=== PATIENT | male | born 2000 | race Two or more races ===

== ENCOUNTER 2024-09-13 12:20 | Emergency (ER) | payer OTHER ==
[~2024-09-13] VITALS: Ht 180.3 cm; Wt 113.4 kg
[2024-09-13 13:03] VITALS: BP 128/84; O2SAT 99
[2024-09-13] MEDS ORDERED: DIPHENHYDRAMINE HCL 50 MG/ML VIAL 1ML IV ONE (14:00)
[2024-09-13] MEDS ORDERED: 0.9 % SODIUM CHLORIDE 1,000 ML IV SCH (14:00)
[2024-09-13 15:04] LABS: HEMATOCRIT 46.9 % (39.0-48.0); HEMOGLOBIN 16.4 g/dL (13-16.00); MEAN CELL VOLUME 82.8 fL (80.0-100.00); RED BLOOD COUNT 5.67 M/uL (4.00-6.00); RED CELL DISTRIBUTION WIDTH 13.6 % (11.5-14.5)
[2024-09-13 16:31] LABS: PLATELET COUNT 153 K/uL (150-450)
== END 2024-09-13 15:45 | disposition home or self-care (01) ==
LOC: ER 12:22
PROVIDERS: General Practice
DX: B34.9 Viral infection, unspecified (principal); Z20.822 Contact with and (suspected) exposure to COVID-19